=== PATIENT | female | born 1990 | race Caucasian/White ===

== ENCOUNTER 2021-06-02 12:07 | Emergency (ER) | payer BC ==
[2021-06-02 14:35] VITALS: BP 138/88; PULSE 91; RESP 16; TEMP 98.4
--- NOTE | 2021-06-02 15:18 | XR ---
EXAMINATION TYPE: XR hand complete LT DATE OF EXAM: 06/02/2021 CLINICAL HISTORY: pain TECHNIQUE: Frontal, lateral and oblique images of the left hand are obtained. COMPARISON: None. FINDINGS: There is no acute fracture/dislocation evident. The joint spaces appear within normal limi ts. The overlying soft tissue appears unremarkable. IMPRESSION: There is no acute fracture or dislocation. ICD 10 NO FRACTURE, INITIAL EVALUATION
[2021-06-02] MEDS ORDERED: BACITRACIN OINT 1 EACH PACKET TOPICAL ONE (17:08)
[2021-06-02] MEDS ORDERED: DIPH,PERTUS(ACELL)TETVAC-LF 0.5 ML VIAL IM ONE (17:08)
[2021-06-02] MEDS ORDERED: LIDOCAINE 1% INJ 10MG/ML (20 ML MDV) SQ ONE (17:08)
--- NOTE | 2021-06-02 17:11 | ED ---
Upper Extremity HPI - General Chief Complaint: Extremity Injury, Upper Stated Complaint: hand lac Time Seen by Provider: 06/02/21 17:04 Source: patient Mode of arrival: ambulatory Limitations: no limitations - History of Present Illness Initial Comments: 30-year-old female patient presents to the emergency department today for evaluation of laceration to the left hand. Patient states on 11:30 this morning she actually tripped over an ottoman put her hand out to catch herself and her hand went through the window. She was able to get the bleeding under control. She denies significant pain to the hand. Denies any numbness or tingling to the hand or fingers. States her last tetanus vaccine was in 2011. She denies any chance of . - Related Data Allergies Allergy/AdvReac Type Severity Reaction Status Date / Time ondansetron [From Zofran] Allergy Unknown Verified 06/02/21 14:35 Review of Systems ROS Statement: Those systems with pertinent positive or pertinent negative responses have been documented in the HPI. ROS Other: All systems not noted in ROS Statement are negative. Past Medical History Past Medical History: No Reported History History of Any Multi-Drug Resistant Organisms: None Reported Past Surgical History: Back Surgery Additional Past Surgical History / Comment(s): colon surgery Past Psychological History: No Psychological Hx Reported Smoking Status: Never smoker Past Alcohol Use History: None Reported Past Drug Use History: None Reported General Exam Limitations: no limitations General appearance: alert, in no apparent distress, other (This is a well- developed, well-nourished adult female in no acute distress.) Respiratory exam: Present: normal lung sounds bilaterally. Absent: respiratory distress, wheezes, rales, rhonchi, stridor Cardiovascular Exam: Present: regular rate, normal rhythm, normal heart sounds. Absent: systolic murmur, diastolic murmur, rubs, gallop, clicks Extremities exam: Present: full ROM, normal capillary refill, other (There is U shaped 3 cm laceration noted to the medial aspect of the left hand. No active bleeding. It is otherwise pink, warm, dry. Cap refill less than 3 seconds. Full range of motion of the fingers is intact. ). Absent: normal inspection, tenderness, pedal edema, joint swelling, calf tenderness Neurological exam: Present: alert, oriented X3, CN II-XII intact Psychiatric exam: Present: normal affect, normal mood Skin exam: Present: warm, dry, intact, normal color. Absent: rash Course Vital Signs 06/02/21 14:31 Temperature 98.4 F Pulse Rate 91 Respiratory 16 Rate Blood Pressure 138/88 O2 Sat by Pulse 100 Oximetry Procedures - Laceration Laceration #1 Consent Obtained: verbal consent Indication: laceration Site: hand (Left) Size (cm): 3 Description: flap Depth: simple, single layer Anesthetic Used: lidocaine 1% Anesthesia Technique: local infiltration Amount (mls): 4 Pre-repair: wound explored, irrigated extensively Type of Sutures: nylon Size of Sutures: 5-0 Number of Sutures: 4 Technique: simple, interrupted Patient Tolerated Procedure: well, no complications Medical Decision Making - Medical Decision Making 30-year-old female patient presented to the emergency department today for evaluation of left hand laceration. Physical examination did reveal a 3 cm U- shaped laceration to the lateral aspect of the left hand. No active bleeding noted. We will was cleansed and irrigated. Explored for any evidence for foreign body. Neurovascular status is intact. X-ray was negative. Wound was repaired as documented. She'll be discharged to follow-up with the primary care physician for recheck in 1-2 days. She is instructed to return in 7 days to have the stitches removed. Return parameters were discussed in detail. She verbalizes understanding and agrees with this plan. My attending is Dr. Camarena. Disposition Clinical Impression: Laceration of left hand Disposition: HOME SELF-CARE Condition: Good Instructions (If sedation given, give patient instructions): Care For Your Stitches (ED), Laceration (ED) Additional Instructions: Cleanse wound twice daily with warm water and antibacterial soap. Return in 7 days to have the stitches removed. Monitor for signs or symptoms of infection including but not limited to redness, swelling, drainage of pus, fever, or chills. Follow-up through primary care physician for recheck in 1-2 days. Return for any new, worsening, or concerning symptoms. Is patient prescribed a controlled substance at d/c from ED?: No Referrals: Lia Zavala MD [Primary Care Provider] - 1-2 days Time of Disposition: 17:31
== END 2021-06-02 17:36 | disposition home or self-care (01) ==
LOC: EC 12:07
DX: S61.412A Laceration without foreign body of left hand, initial encounter (principal); W26.8XXA Contact with other sharp object(s), not elsewhere classified, initial encounter
CPT/HCPCS: 99283; 90471; 12002; 73130; 90715; J2001

== ENCOUNTER 2023-01-07 08:50 | Emergency (ER) | payer OTHER ==
[2023-01-07] MEDS ORDERED: KETOROLAC 15 MG/ML 1 ML VIAL IVP STA (09:09)
[2023-01-07] MEDS ORDERED: SODIUM CHLORIDE 0.9% 500 ML 500 ML IV STA (09:09)
[2023-01-07] MEDS ORDERED: SODIUM CHLORIDE 0.9% 1,000 ML IV STA (09:09)
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
[2023-01-07 09:34] LABS: Basophils % (A) 0 %; Eosinophils # (A) 0.2 k/uL (0-0.7); Eosinophils % (A) 1 %; HCT 44.9 % (34.0-46.0); HGB 14.1 gm/dL (11.4-16.0); Lymphocytes # (A) 0.7 k/uL (1.0-4.8); Lymphocytes % (A) 4 %; MCH 27.6 pg (25.0-35.0); MCHC 31.4 g/dL (31.0-37.0); MCV 87.7 fL (80.0-100.0); Mean Platelet Volume 8.7; Monocytes # (A) 0.5 k/uL (0-1.0); Monocytes % (A) 3 %; Neutrophils # (A) 17.1 k/uL (1.3-7.7); Neutrophils % (A) 92 %; Platelet Count 225 k/uL (150-450); RBC 5.12 m/uL (3.80-5.40); RDW 13.6 % (11.5-15.5); WBC 18.6 k/uL (3.8-10.6)
[2023-01-07 09:53] LABS: Appearance,Urine Cloudy (Clear); Bilirubin,Urine Negative (Negative); Blood,Urine Trace (Negative); Color,Urine Yellow; Glucose,Urine (UA) Negative (Negative); Ketones,Urine Trace (Negative); Leukocyte Esterase,Urine Large (Negative); Mucus,Urine Rare /hpf; Nitrite,Urine Negative (Negative); Protein,Urine 2+ (Negative); RBC,Urine 6 /hpf (0-5); Squamous Epithelial Cell,Urine 1 /hpf (0-4); WBC,Urine 63 /hpf (0-5)
--- NOTE | 2023-01-07 10:19 | CT ---
EXAMINATION TYPE: CT abdomen pelvis w con DATE OF EXAM: 01/07/2023 COMPARISON: 11/19/2012 HISTORY: 32-year-old female RT side pain, fever TECHNIQUE: Contiguous axial scanning of the abdomen and pelvis following administration of 100 ml Iso bettie 300 IV contrast. Delayed images through the kidneys and coronal/sagittal reconstructions perform ed. CT DLP: 694.9 mGycm Automated exposure control for dose reduction was used. FINDINGS: LUNG BASES: Tiny hiatal hernia. Otherwise, no significant abnormality is appreciated. LIVER/GB: No significant abnormality is appreciated. PANCREAS: No significant abnormality is seen. SPLEEN: No significant abnormality is seen. ADRENALS: No significant abnormality is seen. KIDNEYS: Multifocal patchy hypoenhancement throughout the right kidney. There is no hydronephrosis. S ymmetric uptake and excretion of contrast from the kidneys. Suggestion of mild urothelial thickening within the right renal collecting system. BOWEL: Some surgical material noted along the left mid abdominal small bowel loops. No dilated small bowel, free fluid, or free air. Scattered mild stool. Midline cecum. Normal appendix. LYMPH NODES: No significant abnormality is seen. OTHER: No significant abnormality is seen. PELVIS: Possible bicornuate uterus. Possible septate vagina with 2 tampons. Clinically correlate. No abnormal fluid collection in the pelvis or pelvic lymphadenopathy. Bladder nondistended. BONES: No significant abnormality is seen. IMPRESSION: 1. EXAM POSITIVE FOR RIGHT-SIDED PYELONEPHRITIS. NO ABSCESS FORMATION. 2. 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 POSSIBLE SEPTATE VAGINA WIT H 2 TAMPONS. CLINICALLY CORRELATE. 3. TINY HIATAL HERNIA.
[2023-01-07 10:31] LABS: ALT 25 U/L (4-34); AST 28 U/L (14-36); African American GFR (CKD) 70 (>60 ml/min/1.73 sqM); Albumin 3.9 g/dL (3.5-5.0); Alkaline Phosphatase 74 U/L (38-126); Anion Gap 9 mmol/L; Blood Urea Nitrogen 16 mg/dL (7-17); Calcium 8.9 mg/dL (8.4-10.2); Carbon Dioxide 25 mmol/L (22-30); Chloride 103 mmol/L (98-107); Glucose 122 mg/dL (74-99); Lipase 37 U/L (23-300); Non-African American GFR(CKD) 61 (>60 ml/min/1.73 sqM); Potassium 3.7 mmol/L (3.5-5.1); Sodium 137 mmol/L (137-145); Total Bilirubin 0.8 mg/dL (0.2-1.3)
[2023-01-07] MEDS ORDERED: ACETAMINOPHEN TAB 500 MG TAB PO STA (10:40)
[2023-01-07 11:11] VITALS: BP 104/66; PULSE 98; RESP 18
[2023-01-07 11:36] VITALS: TEMP 99.2
== END 2023-01-07 11:39 | disposition home or self-care (01) ==
LOC: EC 08:50
DX: N12 Tubulo-interstitial nephritis, not specified as acute or chronic (principal); K44.9 Diaphragmatic hernia without obstruction or gangrene; Z88.8 Allergy status to other drugs, medicaments and biological substances
CPT/HCPCS: 36415; 80053; 83605; 83690; 85025; 81001; 81025; 74177; 99284; 96365; 96375; 96361; J0696; J1885; Q9967